=== PATIENT | male | born 1980 | race Two or more races ===

== ENCOUNTER 2016-08-23 17:01 | Emergency (ER) | payer OTHER ==
--- NOTE | 2016-08-23 18:41 | RAD ---
Exam: Three-view left knee COMPARISON: None INDICATION: Twisted left knee yesterday, pain and swelling. Findings: AP, lateral and sunrise views of the left knee were obtained. There is a moderate joint effusion. Alignment is within normal limits. No fracture is identified. Nonspecific small soft tissue calcification versus less likely radiopaque foreign body projects in the soft tissues along the anterolateral aspect of the knee. This is of uncertain chronicity given lack of comparisons. There is minimal osteophyte formation within the patellofemoral joint and medial compartment. There is no significant joint space narrowing. IMPRESSION: Moderate joint effusion, however no acute osseous abnormality is identified in the left knee.
[2016-08-23] MEDS ORDERED: IBUPROFEN 600 MG TABLET ONE (19:45)
[2016-08-23] MEDS ORDERED: ACETAMINOPHEN 325 MG TABLET ONE (19:45)
== END 2016-08-23 20:18 | disposition home or self-care (01) ==
LOC: ED 17:01
DX: M25.462 Effusion, left knee (principal); X50.0XXA Overexertion from strenuous movement or load, initial encounter; Y93.H3 Activity, building and construction; Y92.009 Unspecified place in unspecified non-institutional (private) residence as the place of occurrence of the external cause; Y99.0 Civilian activity done for income or pay
CPT/HCPCS: 73562; 99283 ×2; A9270 ×2